=== PATIENT | male | born 1985 | race Caucasian/White ===

== ENCOUNTER 2016-12-25 07:12 | Emergency (ER) | payer OTHER ==
[~2016-12-25] VITALS: Ht 180.3 cm; Wt 117.9 kg
[2016-12-25 07:58] LABS: ABSOLUTE BASOPHIL COUNT 0 /CUMM (0.0-0.2); ABSOLUTE EOSINOPHIL COUNT 0.5 /CUMM (0.0-0.7); ABSOLUTE GRANULOCYTE CT 8.1 /CUMM (1.4-6.5); ABSOLUTE LYMPH COUNT 2.5 /CUMM (1.2-3.4); ABSOLUTE MONOCYTE COUNT 0.6 /CUMM (0.10-0.60); BASOPHIL % 0.4 % (0.0-2.0); EOSINOPHIL % 4.1 % (0-5); GRANULOCYTE % 69.2 % (42.2-75.2); HEMATOCRIT 44.2 % (42-52); MEAN CORPUSCULAR HGB 30.4 PG (27.0-31.0); MEAN CORPUSCULAR HGB CONC 33.9 G/DL (33.0-37.0); MEAN CORPUSCULAR VOLUME 89.8 FL (80.0-94.0); MEAN PLATELET VOLUME 7.4 FL (7.4-10.4); PLATELET COUNT 202 /CUMM (130-400); RBC DISTRIBUTION WIDTH 13.4 % (11.5-14.5); RED BLOOD CELL CT 4.92 /CUMM (4.70-6.10); WHITE BLOOD CELL COUNT 11.7 /CUMM (4.8-10.8)
--- NOTE | 2016-12-25 09:03 | ED GI/GU/ABDOMINAL COMPLAINT ---
History of Present Illness General Chief Complaint: ETOH/Drug Related Complaint Stated Complaint: BIBA FOR ETOH Source: patient, old records, EMS, police Exam Limitations: no limitations Vital Signs & Intake/Output Vital Signs & Intake/Output Vital Signs Date Time Temp Pulse Resp B/P Pulse O2 O2 Flow FiO2 Ox Delivery Rate 12/25 1144 97.9 75 18 121/72 98 Room Air 12/25 1104 97.8 74 18 122/86 100 Room Air 12/25 0939 69 18 106/64 100 Nasal 2.0L Cannula 12/25 0843 96 Room Air 12/25 0713 95.7 91 16 151/90 94 Room Air Allergies Coded Allergies: NO KNOWN ALLERGIES (03/23/11) Reconcile Medications No Known Home Medications Triage Note: 31 YEAR OLD MALE TO ER VIA AMBULANCE FROM [facility]ICE LOCK UP FOR N/V. PER EMS PT WAS ARRESTED LAST PM FOR VIOLATION OF PROTECTIVE ORDER, PT WAS INTOXICATED, THIS AM WHEN PD WOKE HIM FOR BREAKFAST HE PROCEEDED TO VOMIT BROWN FLUID. PT ALERT AND ORIENTED ON ARRIVAL, UNAWARE OF INCIDENT THAT LED TO HIS ARREST LAST PM, DENIES ABD PAIN AND NO FURTHER VOMITTING NOTED AT THIS TIME. PT DIFFICULT STICK, LABS OBTAINED BUT NO IV ACCESS AT THIS TIME. PT HAS HISTORY OF HEROINE ABUSE. Triage Nurses Notes Reviewed? yes Onset: Just prior to arrival Duration: minute(s):, gone now Timing: recent history Quality/Severity: vomiting Location: epigastric Radiation: no radiation Activities at Onset: none Past Sexual History: Unobtainable at this time Modifying Factors: Worsens With: eating. Associated Symptoms: abdominal pain, nausea/vomiting HPI: Patient was arrested 5 hours prior to admission for violation of a protective order was found to be intoxicated. He woke after having a few bites of breakfast had profuse vomiting. He currently denies fever chills nausea or abdominal pain diarrhea dysuria rash bleeding headache chest pain. Past History Travel History Traveled to [place] past 21 day No Medical History Any Pertinent Medical History? see below for history Neurological: NONE EENT: NONE Cardiovascular: NONE Respiratory: NONE Gastrointestinal: NONE Hepatic: NONE Renal: NONE Musculoskeletal: NONE Psychiatric: IV drug abuse, opioid dependence, substance abuse Endocrine: NONE Blood Disorders: NONE Cancer(s): NONE [employer] TECH[employer]ICAL LEAD/Reproductive: NONE Active MRSA Infection: No Isolation History: Contact Surgical History Surgical History: non-contributory Psychosocial History What is your primary language Serbian Tobacco Use: Current Not Daily ETOH Use: alcoholic Illicit Drug Use: heroin Family History Hx Contributory? No Review of Systems Review of Systems Constitutional: Reports: see HPI, malaise. EENTM: Reports: no symptoms. Respiratory: Reports: no symptoms. Cardiovascular: Reports: no symptoms. GI: Reports: see HPI, abdominal pain, nausea, vomiting. Genitourinary: Reports: no symptoms. Musculoskeletal: Reports: no symptoms. Skin: Reports: no symptoms. Neurological/Psychological: Reports: no symptoms. Hematologic/Endocrine: Reports: no symptoms. Immunologic/Allergic: Reports: no symptoms. All Other Systems: Reviewed and Negative Physical Exam Physical Exam General Appearance: well developed/nourished, alert, awake, anxious, comfortable , obese Head: atraumatic, normal appearance Eyes: Bilateral: normal appearance, PERRL, EOMI, normal inspection. Ears, Nose, Throat, Mouth: hearing grossly normal, moist mucous membrane Neck: normal inspection, supple, full range of motion, normal alignment Respiratory: normal breath sounds, chest non-tender, no respiratory distress, quiet respiration, lungs clear Cardiovascular: regular rate/rhythm, normal peripheral pulses, norml femoral pulses equa Peripheral Pulses: 4+ carotid (R), 4+ carotid (L) Gastrointestinal: normal bowel sounds, soft, non-tender, no organomegaly Male Genitals: normal genitalia Back: normal inspection, normal range of motion Extremities: normal range of motion, no ligament instability Neurologic/Psych: no motor/sensory deficits, awake, alert, oriented x 3, normal mood/affect, 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 No Severe Sepsis Present: No Septic Shock Present: No Progress Differential Diagnosis: gastritis, pancreatitis Plan of Care: Orders Procedure Date/time Status Regular Diet 12/25 L Active URINE DRUG SCREEN FOR ER ONLY 12/25 718 Complete LIPASE 12/25 718 Complete ETHANOL 12/25 718 Complete COMPREHENSIVE METABOLIC PANEL 12/25 718 Complete CBC WITHOUT DIFFERENTIAL 12/25 718 Complete Laboratory Tests 12/25/16 0742: Urine Opiates Screen > 4000.00 H, Methadone Screen > 735 H, Barbiturate Screen 62, Ur Phencyclidine Scrn < 6.00, Amphetamines Screen 165, U Benzodiazepines Scrn > 800 H, Urine Cocaine Screen > 1000 H, Urine Cannabis Screen < 5.00 12/25/16 0741: Anion Gap 11, Estimated GFR > 60, BUN/Creatinine Ratio 18.6, Glucose 85, Calcium 9.2, Total Bilirubin 0.4, AST 26, ALT 38, Alkaline Phosphatase 96, Total Protein 7.1, Albumin 4.2, Globulin 2.9, Albumin/Globulin Ratio 1.4, Lipase 216, CBC w Diff NO MAN DIFF REQ, RBC 4.92, MCV 89.8, MCH 30.4, RDW 13.4, MPV 7.4, Gran % 69.2, Lymphocytes % 21.3, Monocytes % 5.0, Eosinophils % 4.1, Basophils % 0.4, Absolute Granulocytes 8.1 H, Absolute Lymphocytes 2.5, Absolute Monocytes 0.6, Absolute Eosinophils 0.5, Absolute Basophils 0, PUBS MCHC 33.9, Serum Alcohol 109.0 Initial ED EKG: none Departure Departure Time of Disposition: 1132 Disposition: HOME OR SELF CARE Condition: Stable Clinical Impression Primary Impression: Polysubstance dependence including opioid type drug, episodic abuse Secondary Impressions: Vomiting Qualifiers: Vomiting type: unspecified Vomiting Intractability: non-intractable Nausea presence: unspecified Qualified Code: R11.10 - Vomiting, unspecified Referrals: PATIENT HAS NO PRIMARY CARE DR (PCP/Family) Departure Forms: Customer Survey General Discharge Information Prescriptions: Current Visit Scripts No Known Home Medications
[2016-12-25 11:44] VITALS: BP 121/72
== END 2016-12-25 11:49 ==
LOC: ERH 07:12
PROVIDERS: Emergency Medicine
DX: F11.20 Opioid dependence, uncomplicated (principal); F10.10 Alcohol abuse, uncomplicated; R11.10 Vomiting, unspecified
CPT/HCPCS: 80307; G0480